=== PATIENT | male | born 1975 | race Caucasian/White ===

== ENCOUNTER 2016-05-22 16:59 | Emergency (ER) | payer MEDICARE | END 2016-05-22 19:12 | disposition home or self-care (01) | LOC: ER 16:59 | DX: E11.65 Type 2 diabetes mellitus with hyperglycemia (principal); E78.5 Hyperlipidemia, unspecified; E66.9 Obesity, unspecified; I10 Essential (primary) hypertension; Z87.891 Personal history of nicotine dependence; Z79.4 Long term (current) use of insulin; Z79.899 Other long term (current) drug therapy; Z90.49 Acquired absence of other specified parts of digestive tract | CPT/HCPCS: 36415; 87502; 96361; 96374; 96375 ==

== ENCOUNTER 2016-06-09 11:37 | Emergency (ER) | payer MEDICARE | END 2016-06-09 15:43 | disposition home or self-care (01) | LOC: ER 11:37 | DX: J40 Bronchitis, not specified as acute or chronic (principal); J06.9 Acute upper respiratory infection, unspecified; K59.00 Constipation, unspecified; R11.2 Nausea with vomiting, unspecified; F31.9 Bipolar disorder, unspecified; E11.9 Type 2 diabetes mellitus without complications; Z90.49 Acquired absence of other specified parts of digestive tract; Z79.4 Long term (current) use of insulin | CPT/HCPCS: 36415; 87502; 87651; 96361; 96374; 96375; J1885 ==